=== PATIENT | male | born 1970 | race Caucasian/White ===

== ENCOUNTER 2016-12-12 06:44 | Emergency (ER) | payer OTHER ==
[~2016-12-12] VITALS: Ht 188 cm; Wt 101.6 kg
[2016-12-12] MEDS ORDERED: FAMOTIDINE 20 MG TABLET ONE (07:58)
[2016-12-12] MEDS ORDERED: MAALOX/HYOSCYAMINE/LIDOCAINE 45 ML BTL ONE (07:58)
[2016-12-12] MEDS ORDERED: ONDANSETRON ODT 4 MG ONE (07:58)
[2016-12-12] MEDS ORDERED: MAALOX/HYOSCYAMINE/LIDOCAINE 45 ML BTL PO ONE (08:00)
[2016-12-12] MEDS ORDERED: FAMOTIDINE 20 MG TABLET PO ONE (08:00)
[2016-12-12] MEDS ORDERED: ONDANSETRON ODT 4 MG PO ONE (08:00)
[2016-12-12 09:14] VITALS: BP 107/72
== END 2016-12-12 09:16 | disposition home or self-care (01) ==
LOC: ED 07:36
DX: K21.0 Gastro-esophageal reflux disease with esophagitis (principal)
CPT/HCPCS: 99284; Q0162